=== PATIENT | female | born 1985 ===

== ENCOUNTER 2017-09-13 09:51 | Outpatient (CLI) | payer OTHER | END 2017-09-13 09:59 | disposition home or self-care (01) | LOC: RX STUDY 09:51 | DX: N70.91 Salpingitis, unspecified (principal) ==

== ENCOUNTER 2018-05-30 14:15 | Inpatient (IN) | payer OTHER ==
[~2018-05-30] VITALS: Ht 172.7 cm; Wt 106.1 kg
[2018-06-08] MEDS ORDERED: PRENATAL TABLE1 EAC1 PO (19:33)
[2018-06-08] MEDS ORDERED: CALCIUM600 MG PO (19:34)
== END 2018-06-15 13:59 | disposition home or self-care (01) | DRG 805 ==
LOC: SURG-SUITE 06-08 19:13 → LDR 06-08 19:13 → OB/GYN 06-09 14:15 → SURG-SUITE 06-09 21:40
PROC: 4A1HXCZ Monitoring of Products of Conception, Cardiac Rate, External Approach (ICD-10-PCS; 2018-06-08)
PROC: BY4FZZZ Ultrasonography of Third Trimester, Single Fetus (ICD-10-PCS; 2018-06-08)
PROC: 10E0XZZ Delivery of Products of Conception, External Approach (ICD-10-PCS; principal; 2018-06-12)
PROC: 0HQ9XZZ Repair Perineum Skin, External Approach (ICD-10-PCS; 2018-06-12)
PROC: 0UQGXZZ Repair Vagina, External Approach (ICD-10-PCS; 2018-06-12)
PROC: 3E033VJ Introduction of Other Hormone into Peripheral Vein, Percutaneous Approach (ICD-10-PCS; 2018-06-12)
PROC: 4A033R1 Measurement of Arterial Saturation, Peripheral, Percutaneous Approach (ICD-10-PCS; 2018-06-12)
PROC: BU4CZZZ Ultrasonography of Uterus and Ovaries (ICD-10-PCS; 2018-06-13)
DX: O70.0 First degree perineal laceration during delivery (principal); O14.13 Severe pre-eclampsia, third trimester; Z37.0 Single live birth; Z3A.39 39 weeks gestation of pregnancy
CPT/HCPCS: 240

== ENCOUNTER → 2018-06-04 | Outpatient (CLI) | payer OTHER ==
[~2018-06-04] MED LIST: CALCIUM600 MG PO; PRENATAL TABLE1 EAC1 PO
== END | disposition home or self-care (01) ==
LOC: NST 16:50
DX: Z34.83 Encounter for supervision of other normal pregnancy, third trimester (principal)

== ENCOUNTER 2018-09-07 12:09 | Outpatient (CLI) | payer OTHER ==
[~2018-09-07] VITALS: Ht 152.4 cm; Wt 101.2 kg
== END 2018-09-07 12:20 | disposition home or self-care (01) ==
LOC: OFIC 805 12:09
DX: H61.23 Impacted cerumen, bilateral (principal); H60.8X2 Other otitis externa, left ear

== ENCOUNTER 2020-01-15 14:24 | Outpatient (CLI) | payer OTHER | END 2020-01-15 15:59 | disposition home or self-care (01) | LOC: OFIC 805 14:24 | PROVIDERS: ATTEND Otolaryngology | DX: H60.8X2 Other otitis externa, left ear (principal); H61.23 Impacted cerumen, bilateral ==

== ENCOUNTER 2020-08-15 14:54 | Outpatient (CLI) | payer OTHER | END 2020-08-15 15:41 | disposition home or self-care (01) | LOC: OFIC 805 14:54 | PROVIDERS: ATTEND Otolaryngology Otology & Neurotology | DX: H60.8X2 Other otitis externa, left ear (principal); L30.8 Other specified dermatitis; H61.23 Impacted cerumen, bilateral ==

== ENCOUNTER 2020-08-20 15:06 | Outpatient (CLI) | payer OTHER | END 2020-08-20 16:08 | disposition home or self-care (01) | LOC: OFIC 805 15:06 | PROVIDERS: ATTEND Otolaryngology Otology & Neurotology | DX: L30.8 Other specified dermatitis (principal); H61.23 Impacted cerumen, bilateral; H60.8X3 Other otitis externa, bilateral ==

== ENCOUNTER → 2020-12-17 | Outpatient (CLI) | payer OTHER | END | disposition home or self-care (01) | LOC: PRENATAL 09:30 | PROVIDERS: ATTEND Obstetrics & Gynecology Maternal & Fetal Medicine | DX: Z36.89 Encounter for other specified antenatal screening (principal); O36.80X1 Pregnancy with inconclusive fetal viability, fetus 1; O09.511 Supervision of elderly primigravida, first trimester; Z3A.12 12 weeks gestation of pregnancy ==

== ENCOUNTER 2021-02-18 15:08 | Outpatient (CLI) | payer OTHER | END 2021-02-18 16:00 | disposition home or self-care (01) | LOC: PRENATAL 15:08 | PROVIDERS: ATTEND Obstetrics & Gynecology Maternal & Fetal Medicine | DX: O35.0XX1 Maternal care for (suspected) central nervous system malformation in fetus, fetus 1 (principal); O35.3XX1 Maternal care for (suspected) damage to fetus from viral disease in mother, fetus 1; O98.512 Other viral diseases complicating pregnancy, second trimester; O09.512 Supervision of elderly primigravida, second trimester; Z36.89 Encounter for other specified antenatal screening; Z3A.21 21 weeks gestation of pregnancy ==

== ENCOUNTER 2023-07-26 12:12 | Outpatient (CLI) | payer OTHER | END 2023-07-26 12:13 | disposition home or self-care (01) | LOC: MAMO-SONO 12:12 | PROVIDERS: ATTEND Obstetrics & Gynecology | DX: Z12.39 Encounter for other screening for malignant neoplasm of breast (principal) ==